=== PATIENT | male | born 1975 | race Caucasian/White ===

== ENCOUNTER 2017-04-25 19:58 | Emergency (ER) | payer MEDICAID ==
[~2017-04-25] VITALS: Ht 157.5 cm; Wt 56.7 kg
--- NOTE | 2017-04-25 19:58 | NUR ---
Patient to ER bed 1 to gown for evaluation. Side rails up. Report given to Candis HARRINGTON.
--- NOTE | 2017-04-25 19:59 | NUR ---
ER SABINO Horvath at bedside evaluating the patient
[2017-04-25 20:00] VITALS: BP_SYST 153
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
--- NOTE | 2017-04-25 20:00 | NUR ---
# 20 gauge angiocath placed to left ac. Use of asceptic technique. Opsite placed over site. Blood return noted. Blood for lab drawn from site. Flushed with 10 cc of normal saline. No evidence of infiltration noted. Patient tolerated well.
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
--- NOTE | 2017-04-25 20:09 | NUR ---
ER Osea at bedside evaluating the patient
--- NOTE | 2017-04-25 20:10 | NUR ---
Dr Mirza at bedside examining patient
[2017-04-25 20:27] LABS: BASOPHILS # (AUTO) 0.1 K/uL (0.0-0.2); BASOPHILS % (AUTO) 0.5 % (0.0-2.0); EOSINOPHILS # (AUTO) 0.1 K/uL (0.0-0.4); EOSINOPHILS % (AUTO) 0.6 % (0.0-4.0); HEMATOCRIT 47.8 % (36-54); HEMOGLOBIN 15.6 g/dL (14.0-18.0); LYMPHOCYTES # (AUTO) 2.9 K/uL (1.0-5.5); LYMPHOCYTES % (AUTO) 26.1 % (20.5-51.5); MEAN CORPUSCULAR HEMOGLOBIN 31 pg (27-31); MEAN CORPUSCULAR HGB CONC 33 % (32-36); MEAN CORPUSCULAR VOLUME 95 fL (79.0-98.0); MONOCYTES # (AUTO) 0.9 K/uL (0.0-1.0); MONOCYTES % (AUTO) 7.6 % (1.7-9.3); NEUTROPHILS # (AUTO) 7.2 K/uL (1.8-7.7); NEUTROPHILS % (AUTO) 65.2 % (40.0-70.0); PLATELET COUNT (AUTO) 262 K/uL (130-430); RED BLOOD CELL COUNT(AUTO) 5.02 MIL/uL (4.2-6.2); RED CELL DISTRIBUTION WIDTH 14.2 % (9.0-15.0); WHITE BLOOD COUNT (AUTO) 11.2 K/uL (4.8-10.8)
[2017-04-25] MEDS ORDERED: DIPH-TET-PERTUS Vaccine 0.5 ML VIAL (ADACEL) I.M. ONE (20:30)
[2017-04-25 20:33] LABS: ANION GAP 11 (5-15); CALCIUM 8.8 mg/dL (8.4-11.0); CHLORIDE 107 mmol/L (98-107); CREATININE 1.63 mg/dL (0.55-1.30); GLUCOSE 196 mg/dL (70-99); POTASSIUM 3.4 mmol/L (3.5-5.1); SODIUM SERUM 137 mmol/L (136-145); UREA NITROGEN, BLOOD 13 mg/dL (8-21)
[2017-04-25] MEDS ORDERED: NACL 0.9% 1,000 ML IV ONE (20:33)
[2017-04-25 20:36] LABS: GFR AFRICAN AMERICAN 60 mL/min (>90)
[2017-04-25 20:37] LABS: BILIRUBIN,URINE 1+ (NEGATIVE); CLARITY/URINE SL HAZY (CLEAR); COLOR,URINE YELLOW (YELLOW); GLUCOSE,URINE NEGATIVE (NEGATIVE); KETONES,URINE NEGATIVE (NEGATIVE); LEUKOCYTE ESTERASE ,URINE NEGATIVE (NEGATIVE); NITRITE, URINE NEGATIVE (NEGATIVE); PROTEIN URINE 2+ (NEGATIVE)
[2017-04-25 20:37] LABS: INR 1.1 (0.80-1.20); PROTHROMBIN TIME 12.3 SECS (9.5-12.5)
[2017-04-25 20:38] LABS: BLOOD, URINE TRACE (NEGATIVE)
[2017-04-25 20:38] LABS: ALANINE AMINOTRANSFERASE 60 U/L (12-78); ALBUMIN 3.6 g/dL (3.4-4.8); ASPARTATE AMINOTRANSFERASE 36 U/L (10-37); TOTAL BILIRUBIN 1.1 mg/dL (0.0-1.0)
[2017-04-25 20:42] LABS: ALCOHOL, BLOOD < 3 mg/dL (<10)
[2017-04-25 20:43] LABS: ACETAMINOPHEN < 1 ug/mL (1-30)
[2017-04-25 20:45] LABS: BACTERIA,URINE FEW /HPF (None Seen); CALCIUM OXALATE CRYSTALS,UR 0-10 /HPF (None Seen); FINE GRANULAR CASTS,URINE 0-10 /LPF (None Seen); MUCUS,URINE 2+ /LPF (None Seen)
[2017-04-25 20:47] LABS: BARBITURATE, URINE NEGATIVE (NEG <=200)
[2017-04-25 20:48] LABS: BENZODIAZEPINE, URINE NEGATIVE (NEG <=150); CANNABINOID, URINE NEGATIVE (NEG <=50); COCAINE, URINE NEGATIVE (NEG <=150); METHAMPHETAMINES SCREEN,URINE POSITIVE (NEG <=500); OPIATE, URINE NEGATIVE (NEG <=100); PHENCYCLIDINE SCREEN,URINE NEGATIVE (NEG <=25); UR TRICYCLIC ANTIDEPRESSANTS NEGATIVE (NEG <=300); URINE AMPHETAMINE POSITIVE (NEG <=500); URINE METHADONE NEGATIVE (NEG <=200); URINE OXYCODONE SCREEN NEGATIVE (NEG <=100); URINE PROPOXYPHENE SCREEN NEGATIVE (NEG <=300)
--- NOTE | 2017-04-25 20:50 | NUR ---
15 minutes after administration of TDAP. No adverse reactions noted. Will continue to monitor.
[2017-04-25] MEDS: LIDOCAINE 1% 10 MG/ML, 20 ML MDV INJ ONE ×2 (20:58→21:32)
--- NOTE | 2017-04-25 21:01 | NUR ---
MD Quachea at bedside using Dermabond to close the laceration site. Patient tolerated well.
--- NOTE | 2017-04-25 21:15 | NUR ---
15 minutes after administration of NS. No adverse reactions noted. Will continue to monitor.
[2017-04-25 22:14] VITALS: BP_SYST 129
--- NOTE | 2017-04-25 22:14 | NUR ---
Patient given written and verbal discharge instructions and verbalizes understanding. ER MD Mirza discussed with patient the results and treatment provided. Patient in stable condition. ID arm band removed. IV catheter removed intact and dressing applied, no active bleeding. Rx of levaquin given. Patient educated on pain management and to follow up with PMD. Pain Scale 0/10. Opportunity for questions provided and answered.
== END 2017-04-25 22:14 | disposition home or self-care (01) ==
LOC: SED 19:58
DX: S01.111A Laceration without foreign body of right eyelid and periocular area, initial encounter (principal); S01.311A Laceration without foreign body of right ear, initial encounter; R79.1 Abnormal coagulation profile; F17.210 Nicotine dependence, cigarettes, uncomplicated; Y04.0XXA Assault by unarmed brawl or fight, initial encounter; Y93.89 Activity, other specified; Y92.89 Other specified places as the place of occurrence of the external cause; Y99.8 Other external cause status
CPT/HCPCS: 12015; 36415; 70450; 70486; 71010; 72125; 80053; 80307; 81000; 82550; 83605; 84484; 85025; 85610; 85730; 90471; 90715; 93005; 96360; 99285; G0480; G0481; G0482; J7030; J2001